=== PATIENT | female | born 1980 | race Hispanic/Latino ===

== ENCOUNTER 2017-10-17 06:26 | Day surgery (SDC) | payer OTHER ==
--- NOTE | 2017-10-16 14:40 | PREOPHP ---
Date of Admission: 10/16/2017 History Of Present Illness: Ms. Avery is a 37-year-old female, 2, para 2-0-0-2 who is status post tubal ligation, who is admitted for an excision of subcutaneous mass suspicious fo r endometriosis and for hysteroscopy, D and C, and NovaSure endometrial ablation for menorrhagia. Sh kimberley is having cyclic menses, but has noticed this abdominal mass for the last [address] exam is s howing increase in size. Because of symptoms and prior 2 sections, it is very suspicious th at this is subcutaneous endometriosis. This mass will be removed by Dr. Ferraro. Hysteroscopy, NovaSu re endometrial ablation will be performed because of extremely heavy period. Past Medical History: Includes 2 prior sections, tubal ligation with her 2nd secti on and carpal tunnel surgery on right wrist. Medications: She is on no medications on a regular basis. Allergies: SHE HAS NO KNOWN ALLERGIES. Social History: Does not smoke. Family History: Includes elevated blood pressure, diabetes on her mother side, breast cancer on her maternal aunt's side. Review of Systems: She reports no recent cough, cold, fever, or chills. No recent nausea, vomiting. She denies any vijay ast lumps. She denies any abdominal pain or discomfort other than associated with the subcutaneous m ass. She denies any vaginal or bladder symptoms. Physical Examination: General: female in no apparent distress. Neck: Supple without adenopathy or thyromegaly. Lungs: Clear. Cardiac: Regular rate and rhythm without murmurs. Breasts: Not examined. Abdomen: Nontender other than the subcutaneous mass basically at her incision line which i s approximately 4 x 6 cm. Pelvic: Normal female external genitalia. There is some vaginal mucosal redness consistent with yea st and she has complaints of some intertrigo. Bimanual, no abnormalities. Extremities: No cyanosis, clubbing, edema. Plan: The patient will undergo a subcutaneous mass removal,, hysteroscopy, dilatation and curettage, NovaSure endometrial ablation. Risks are discussed for the hysteroscopy and D and C, and she has si gned operative permit in my presence. She is told to remain n.p.o. after midnight tonight. MARU/PORTER Voice ID: [id number]
[2017-10-16 16:39] LABS: Absolute Lymphocytes (CBC) 2.4 K/uL (0.7-4.9); Absolute Monocytes 0.5 K/uL (0.1-1.3); Absolute Neutrophil 5.3 K/uL (1.8-8.0); Basophils % 0.9 % (0-1.3); Eosinophils % 0.7 % (0-4.4); Hematocrit 37.6 % (36.0-45.0); MCH 27.1 pg (27.0-35.0); MCV 82.6 fL (80-100); MPV 8.7 fL (7.6-11.3); RBC Red Blood Cell Count 4.56 M/uL (3.86-4.86)
[2017-10-16 16:42] LABS: BUN Blood Urea Nitrogen 11 mg/dL (7-18); Bicarbonate 24 mmol/L (21-32); Glucose Level 85 mg/dL (74-106); Potassium 3.8 mmol/L (3.5-5.1); Sodium Level 139 mmol/L (136-145)
[2017-10-17] MEDS: Ringers Lactate 1,000 ML IV ONE ×2 (06:50→07:05)
[2017-10-17] MEDS ORDERED: SILVER NITRATE 1 APPL TOP ONE (06:52)
[2017-10-17] MEDS ORDERED: BUPIVACAINE 0.5% PF 10 ML VIAL ONE (06:53)
[2017-10-17] MEDS ORDERED: CEFAZOLIN/SWI 1gm 1 GM/10 ML SYR ONE (06:54)
[2017-10-17] MEDS ORDERED: MIDAZOLAM HCL 2 MG/2 ML INJ ONE (07:02)
[2017-10-17] MEDS ORDERED: PROPOFOL 200 MG/20 ML VIAL IV ONE (07:02)
[2017-10-17] MEDS ORDERED: LIDOCAINE 2% MPF 5 ML VIAL ONE (07:02)
[2017-10-17] MEDS ORDERED: FENTANYL CITR 100 MCG/2 ML ONE ×2 (07:02→08:09)
[2017-10-17] MEDS ORDERED: ONDANSETRON HCL 40 MG/20 ML VIAL ONE (07:04)
--- NOTE | 2017-10-17 08:03 | P.BOP ---
Preoperative diagnosis: Menorrhagia Postoperative diagnosis: same, endometrial polyp Primary procedure: hysteroscopy, D&C, Novasure endometrial ablation Estimated blood loss: Less than 10ml Specimen: endometrial currettings Findings: probably polyp Anesthesia: General Complications: None Condition: Good
[2017-10-17] MEDS ORDERED: KETOROLAC 30 MG/ML INJ ONE (08:17)
[2017-10-17] MEDS ORDERED: ONDANSETRON 4 MG/2 ML VIAL ONE (09:10)
[2017-10-17] MEDS ORDERED: PROMETHAZINE 25 MG/ML VIAL ONE (09:15)
[2017-10-17] MEDS ORDERED: MEPERIDINE HCL 50 MG/ML AMP ONE (09:21)
--- NOTE | 2017-10-17 10:34 | OP ---
Surgeon: Gilbert Amaya MD Preoperative Diagnosis: Menorrhagia. Procedure: Hysteroscopy, dilation and curettage, NovaSure endometrial ablation. Postoperative Diagnosis: Menorrhagia, probable endometrial polyp. Description Of Procedure: After satisfactory level of LMA anesthesia was obtained, the patient was p repped and draped in the usual fashion in low leg holders. A bivalve speculum was placed in the vagi na. Cervix was visualized and grasped with single-tooth tenaculum. Hysteroscope was advanced showin g a large endometrial polyp. Hysteroscope was removed. Polyp was grasped with polyp forceps and rem deven with several bites. Hysteroscopy post procedure revealed no additional abnormalities. Brief cu rettage of the endometrium was productive of no additional tissue. NovaSure endometrial ablation wit h a 5.5 cavity length, 4.5 cavity width, 136 greenwood for 80 seconds was performed. NovaSure device was removed. Single-tooth tenaculum was removed. Bleeding at the tenaculum sites was noted, controlled with and stopped by silver nitrate cautery. The patient was then re-prepped and draped for Dr. Nancy juarez's procedure, excision of abdominal mass. Estimated total blood loss was less than 10 mL. MARU/PORTER Voice ID: [id number] Report ID: [id number]
--- NOTE | 2017-10-17 11:01 | OP ---
Date of Procedure: 10/17/2017 Surgeon: Betito Ferraro MD Preoperative Diagnosis: Abdominal wall mass. Postoperative Diagnosis: Abdominal wall mass. Procedure: Excision of abdominal wall mass, deep, 6 x 4 cm with layered closure. Estimated Blood Loss: Minimal. Specimens: Abdominal wall mass. Findings: Likely endometrioma. Anesthesia: General. Complications: None. Disposition: The patient tolerated the procedure in stable condition and taken to Recovery in good g eneral condition. Operative Note: The patient was brought to the OR and placed in supine position. General anesthesia was begun. The patient had procedure done by Dr. Amaya. After he finished, the patient was shirlene kashif in the supine position, prepped and draped in the usual sterile fashion. An approximately 6 cm i ncision was made just above the scar. Subcutaneous tissue was divided all the way down tyrel p into the subcutaneous tissue near the fascia, was hard indurated tissue which was excised and sent to Pathology as specimen, approximately 6 x 4 cm area. The fascia had to be opened to allow complete excision of this mass and then the fascia was closed with #1 Prolene running fashion and wound irrig ated. Bleeding was controlled with cautery. The deep tissues were closed with 2-0 chromic as well a s the superficial tissues, and the john were used to close the skin. Sterile dressing was applied . The patient was awakened and taken to Recovery in good general condition. Discharge Note: The patient will go to Day Surgery and home when stable. Disposition: Home. Condition: Stable. Discharge Instructions: Resume home medications and diet. Activity as tolerated. No heavy lifting. Remove outer dressing in 2 days. Shower. Keep wound clean and dry. Follow up in my office in 1 w [place]. Call for appointment. Follow up with Dr. Amaya in 3 weeks. Tylenol No. 3 one tablet p.o. q.4 p.r.n. pain. /MODL Voice ID: [id number] Report ID: [id number]
== END 2017-10-17 10:40 | disposition home or self-care (01) ==
LOC: OR 06:26
PROVIDERS: ATTEND Specialist
PROC: 0UDB8ZZ Extraction of Endometrium, Via Natural or Artificial Opening Endoscopic (ICD-10-PCS; 2017-10-17)
PROC: 0WBF0ZZ Excision of Abdominal Wall, Open Approach (ICD-10-PCS; principal; 2017-10-17 07:30)
PROC: 0U5B8ZZ Destruction of Endometrium, Via Natural or Artificial Opening Endoscopic (ICD-10-PCS; 2017-10-17 07:30)
DX: N80.8 Other endometriosis (principal); N84.0 Polyp of corpus uteri
CPT/HCPCS: 36415; 80048; 84703; 85025; 88305; J0690; J2175; J2250; J2405; J2550; J3010

== ENCOUNTER 2020-10-01 08:11 | Emergency (ER) | payer OTHER ==
--- NOTE | 2020-10-01 08:54 | ER ---
Nurse's Notes [facility] Name: Gracie Avery Age: 39 yrs Sex: Female : 1980 Arrival Date: 10/01/2020 Time: 08:14 Bed 16 Private MD: Diagnosis: Person with feared health complaint in whom no diagnosis is made Presentation: 10/01 08:20 Chief complaint: Chief complaint: Patient states: Possibly lost a foreign body in her ll1 vagina last night. Reports ETOH use, doesn't remember removing it. 08:20 Coronavirus screen: Client denies travel out of the [place] in the last 14 days. At this ll1 time, the client does not indicate any symptoms associated with coronavirus-19. Ebola Screen: Patient denies travel to an Ebola-affected area in the 21 days before illness onset. Initial Sepsis Screen: Does the patient meet any 2 criteria? No. Patient's initial sepsis screen is negative. Does the patient have a suspected source of infection? No. Patient's initial sepsis screen is negative. Risk Assessment: Do you want to hurt yourself or someone else? Patient reports no desire to harm self or others. Onset of symptoms was September 30, 2020. 08:20 Method Of Arrival: Ambulatory 1 08:20 Acuity: JOHNSON 4 ll1 Historical: - Allergies: 08:20 No Known Allergies; ll1 - PMHx: 08:20 None; ll1 - PSHx: 08:20 uterine ablation; section; ll1 - Immunization history:: Client reports receiving the 2nd dose of the Covid vaccine, Flu vaccine is not up to date. - Social history:: Smoking status: Patient denies any tobacco usage or history of. - Family history:: not pertinent. - Hospitalizations: : No recent hospitalization is reported. Screenin:58 Abuse screen: Denies threats or abuse. Denies injuries from another. Nutritional tr6 screening: No deficits noted. Tuberculosis screening: No symptoms or risk factors identified. Fall Risk None identified. Assessment: 08:57 General: Appears in no apparent distress. comfortable, Behavior is calm, cooperative, tr6 appropriate for age. Pain: Denies pain. Neuro: No deficits noted. Cardiovascular: No deficits noted. Respiratory: No deficits noted. GI: No deficits noted. : No deficits noted. EENT: No deficits noted. Derm: No deficits noted. Musculoskeletal: No deficits noted. Vital Signs: 08:20 BP 157 / 81; Pulse 83; Resp 17; Temp 97.2; Pulse Ox 99% ; Weight 93.89 kg; Height 5 ft. ll1 2 in. (157.48 cm); Pain 0/10; 08:20 Body Mass Index 37.86 (93.89 kg, 157.48 cm) ll1 ED Course: 08:14 Patient arrived in ED. mr 08:17 Seferino De Jesus MD is Attending Physician. rn 08:18 Renetta Costa, KIM is Primary Nurse. tr6 08:25 Arm band placed on Patient placed in an exam room, on a stretcher. ll1 08:40 Triage completed. ll1 08:57 Assist provider with pelvic exam: Set up pelvic tray. Performed by Seferino De Jesus MD. tr6 08:58 Patient has correct armband on for positive identification. Bed in low position. Call tr6 light in reach. Administered Medications: No medications were administered Outcome: 08:53 Discharge ordered by . rn 08:58 Patient left the ED. tr6 Signatures: Carina Ortiz Seferino De Jesus MD MD rn Lewis, Lynsay, RN RN ll1 Renetta Costa, KIM RN tr6 Corrections: (The following items were deleted from the chart) 08:40 08:38 Chief complaint: ll1 ll1
--- NOTE | 2020-10-01 08:54 | EDPHYS ---
Physician Documentation [facility] Name: Gracie Avery Age: 39 yrs Sex: Female : 1980 Arrival Date: 10/01/2020 Time: 08:14 Bed 16 Private MD: ED Physician Seferino De Jesus HPI: 10/01 08:23 This 39 yrs old Female presents to ER via Unassigned with complaints of rn Foreign body In Vagina. 08:23 The patient presents with can't find tampon. Onset: The symptoms/episode began/occurred rn last night. Modifying factors: The symptoms are alleviated by nothing, the symptoms are aggravated by nothing. Associated signs and symptoms: Pertinent negatives: dysuria, fever, vaginal discharge. Severity of symptoms: At their worst the symptoms were mild, in the emergency department the symptoms are unchanged. The patient has not experienced similar symptoms in the past. The patient has not recently seen a physician. Reports placed tampon last night, tried to take out around midnight, had a lot to drink, cannot remember if took out or still in, tried to locate it, can't. No fever or vaginal discharge. . Historical: - Allergies: 08:20 No Known Allergies; ll1 - PMHx: 08:20 None; ll1 - PSHx: 08:20 uterine ablation; section; ll1 - Immunization history:: Client reports receiving the 2nd dose of the Covid vaccine, Flu vaccine is not up to date. - Social history:: Smoking status: Patient denies any tobacco usage or history of. - Family history:: not pertinent. - Hospitalizations: : No recent hospitalization is reported. ROS: 08:23 Positive for suspected foreign body, Negative for vaginal discharge, vaginal itching.rn 08:23 Constitutional: Negative for fever, chills, and weight loss, Abdomen/GI: Negative for abdominal pain, nausea, vomiting, diarrhea, and constipation, Back: Negative for injury and pain. Exam: 08:23 Constitutional: This is a well developed, well nourished patient who is awake, alert, rn and in no acute distress. Abdomen/GI: soft, non-tender 08:46 Female : Normal external genitalia. + small amount of blood and clot in vault, no rn foreign body identified, used swabs and evacuated clot, no tampon visualized, speculum rotated multiple angles, no foreign body appreciated. Clear view of cervix, fornices explored without foreign body or discharge. Vital Signs: 08:20 BP 157 / 81; Pulse 83; Resp 17; Temp 97.2; Pulse Ox 99% ; Weight 93.89 kg; Height 5 ft. ll1 2 in. (157.48 cm); Pain 0/10; 08:20 Body Mass Index 37.86 (93.89 kg, 157.48 cm) ll1 MDM: 08:17 Patient medically screened. rn 08:46 Differential diagnosis: retained tampon, lost tampon. Data reviewed: vital signs, rn nurses notes, and as a result, I will discharge patient. Counseling: I had a detailed discussion with the patient and/or guardian regarding: the historical points, exam findings, and any diagnostic results supporting the discharge/admit diagnosis, the need for outpatient follow up, to return to the emergency department if symptoms worsen or persist or if there are any questions or concerns that arise at home. 08:53 ED course: Will dc home with return precautions, told if any foul discharge nursing support worker discomfort to f/u with TRAFFIC CONTROL OFFICER.. Administered Medications: No medications were administered Disposition Summary: 10/01/20 08:53 Discharge Ordered Location: Home rn Problem: new rn Symptoms: have improved rn Condition: Stable rn Diagnosis - Person with feared health complaint in whom no diagnosis is made rn Followup: rn - With: Private Physician - When: As needed - Reason: Recheck today's complaints, Re-evaluation by your physician Discharge Instructions: - Discharge Summary Sheet rn - Vaginal Foreign Body, [id number] rn Forms: - Medication Reconciliation Form rn - Thank You Letter rn - Antibiotic cerner analyst - Prescription Opioid Use rn Signatures: Seferino De Jesus MD MD rn Lewis, Lynsay, RN RN ll1
[2020-10-01 09:13] VITALS: BP 157/81; TEMP 97.2; O2SAT 99
== END 2020-10-01 08:58 | disposition home or self-care (01) ==
LOC: ER 08:11
DX: Z71.1 Person with feared health complaint in whom no diagnosis is made (principal)
CPT/HCPCS: 99282

== ENCOUNTER 2021-01-11 07:23 | Day surgery (SDC) | payer OTHER ==
[2021-01-08 10:56] LABS: Absolute Lymphocytes (CBC) 2.3 K/uL (0.7-4.9); Basophils % 0.8 % (0-1.3); Hematocrit 36.7 % (36.0-45.0); Lymphocytes % 26.8 % (15.3-44.8); MPV 8.3 fL (7.6-11.3); RBC Red Blood Cell Count 4.38 M/uL (3.86-4.86)
[2021-01-08 11:40] LABS: Urine Appearance CLEAR (Clear); Urine Bilirubin NEGATIVE (Negative); Urine Blood 1+ (Negative); Urine Color YELLOW (Yellow); Urine Glucose NEGATIVE (Negative); Urine Protein NEGATIVE (Negative); Urine Urobilinogen 0.2 mg/dL (0.2-1.0); Urine pH 7.5 (5.0-7.0)
[2021-01-08 11:46] LABS: Urine Microscopic Reflex ORDER UMIC
[2021-01-08 12:06] LABS: Urine Bacteria 20-50 /HPF (<20); Urine RBC <5 /HPF (NONE SEEN)
[2021-01-11 07:45] LABS: Specific Gravity 1.015 (1.005-1.030)
[2021-01-11] MEDS ORDERED: SCOPOLAMINE HYDROBROMIDE PATCH TD ONE (08:08)
[2021-01-11] MEDS ORDERED: Ringers Lactate 1,000 ML IV ONE ×3 (08:08→12:32)
[2021-01-11] MEDS ORDERED: CEFAZOLIN/NS 1gm 1 GM/50 ML BAG ONE (08:09)
[2021-01-11] MEDS ORDERED: CEFAZOLIN/SWI 2gm 2 GM/20 ML SYR ONE (08:09)
[2021-01-11] MEDS ORDERED: propofoL 200 MG/20 ML VIAL IV ONE (08:31)
[2021-01-11] MEDS ORDERED: ROCURONIUM 50 MG/5 ML VIAL IV ONE ×3 (08:32→11:16)
[2021-01-11] MEDS ORDERED: GLYCOPYRROLATE 0.2 MG/ML SYR ONE (08:33)
[2021-01-11] MEDS ORDERED: LIDOCAINE 2% MPF 5 ML VIAL ONE (08:33)
[2021-01-11] MEDS ORDERED: FENTANYL CITR 250 MCG/5 ML ONE (08:33)
[2021-01-11] MEDS ORDERED: MIDAZOLAM HCL 2 MG/2 ML INJ ONE (08:33)
[2021-01-11] MEDS ORDERED: ONDANSETRON 4 MG/2 ML VIAL ONE (08:35)
[2021-01-11] MEDS ORDERED: CELECOXIB 100 MG CAPSULE ONE ×2 (08:42→08:45)
[2021-01-11] MEDS ORDERED: ACETAMINOPHEN 500 MG TAB ONE (08:42)
[2021-01-11] MEDS ORDERED: dexAMETHasone 10 MG/ML VIAL ONE (09:13)
[2021-01-11] MEDS: BUPIVACAINE 0.25% PF 30 ML VIAL ONE ×2 (09:24→09:30)
[2021-01-11] MEDS ORDERED: FENTANYL CITR 100 MCG/2 ML ONE ×3 (10:13→12:01)
[2021-01-11] MEDS: Ringers Lactate 1,000 ML IV ONE ×2 (10:27→10:45)
[2021-01-11] MEDS ORDERED: HEPARIN 500 UNIT/5 ML SYR IV ONE (10:38)
[2021-01-11] MEDS ORDERED: KETOROLAC 30 MG/ML INJ ONE (11:35)
[2021-01-11] MEDS ORDERED: METHYLENE BLUE 0.5% 10 ML AMP ONE (12:24)
[2021-01-11] MEDS ORDERED: Mastisol Adhesive Liq ONE (12:28)
[2021-01-11] MEDS ORDERED: PROMETHAZINE INJ 25 MG/ML AMP IV PRN (12:33)
[2021-01-11] MEDS ORDERED: IBUPROFEN 200 MG TAB PO PRN (12:33)
[2021-01-11] MEDS ORDERED: HYDROCODONE/APAP 5/325 MG TAB PO PRN (12:33)
[2021-01-11] MEDS ORDERED: MEPERIDINE HCL 25 MG/ML SYR IM PRN (12:33)
--- NOTE | 2021-01-11 12:42 | P.BOP ---
Preoperative diagnosis: Menorrhagia, Pelvic pain Postoperative diagnosis: AUB-A/E, Endometriosis Primary procedure: TLH BS, Extensive Endo excision, thermocoagulation, BRIAN bladder Secondary procedure: cystoscopy Training Facilitator: Amber Paul Estimated blood loss: min Specimen: uterus tubes endo of ant CDS excised Findings: endometriosis ant CDS, post CDS and bilat USL Anesthesia: General Complications: None Transferred to: Recovery Room Condition: Good
[2021-01-11] MEDS ORDERED: HYDROCODONE/APAP 5/325 MG TAB ONE (14:37)
[2021-01-11 17:02] VITALS: BP 146/78; TEMP 98.9; O2SAT 100
[2021-01-12] MEDS ORDERED: HOME MED 1 EA UNK (Pnv No.95/Ferrous Fum/Folic Ac [Prenatal Multivitamin Tablet] Tablet) PO SCH (09:00)
--- NOTE | 2021-01-15 05:14 | OP ---
Date of Procedure: 01/11/2021 Surgeon: Kaylan Finch MD Wire Spinner: Amber Apple. Preoperative Diagnosis: Menorrhagia, pelvic pain. Postoperative Diagnosis: AUB-A/E, menorrhagia, pelvic pain, endometriosis, and bladder adhesions. C esarean scar to the uterus and bladder. Procedures Performed: Total laparoscopic hysterectomy, extensive endometriosis excision, thermocoagu lation of endometriosis as well and lysis of bladder adhesions from her prior sections from scar and cystoscopy. Estimated Blood Loss: Minimal. Specimens: Uterus, tubes, endometriosis of the anterior cul-de-sac that was excised. Findings: Endometriosis of the anterior cul-de-sac, posterior cul-de-sac, bilateral uterosacral liga ments, adhesions of the bladder to the anterior abdominal wall as well as the uterus to the anterior abdominal wall significant from her prior scar. Left ureter had not shown a prompt jet of urine. So, 0.035 mm Glidewire was inserted and removed and then there is a strong jet of urine from the ureter. Cystoscopy was negative. Anesthesia: General endotracheal. Complications: No complications. Drains: No drains. Condition: The patient's condition is stable. On the posterior cul-de-sac, the endometriosis implants were straight across from [address] on the anterior wall of the rectum, however, very superficial peritoneal implants going all th e way to the opposite side uterosacral. There was partial cul-de-sac obliteration, so the series of the endometriosis on the posterior wall were thermocoagulated using bipolar Josie tip. Anterior cu l-de-sac, another endometriosis was excised and included with the specimen. After informed consent was verified, the patient was taken back to the OR, placed in supine fashion o n the operating table. General anesthesia was given. After 2 g of Ancef was given to this patient, SCDs were started. Abdomen, vulva, vagina, and perineum were prepped and draped in a sterile fashion after putting the patient in lithotomy position. Pelvic exam was performed, no new findings. Castle was placed to drain the bladder and attached for retrograde filling and then a large VCare was introduced into the uterus and fixed in place. This difficulty initially was popped in without any p roblems after this area was draped. A 1 cm supraumbilical incision was made with a scalpel using the open laparoscopy technique. Fascia was incised and tagged with 0 Vicryl sutures. Peritoneum was entered sharply. S-retractors were shirlene kashif. Gurinder was introduced. After adequate insufflation, site of entry was checked and was unremark able. The adhesions of the bladder went all the way pen[facility] down from the umbilicus to the level of the bladder suprapubic area completely, that was the reason why originally, also given the body habit us of the patient, incision was made in the supraumbilical area. After placing 5 left lower quadrant and right lower quadrant ports as well as left upper quadrant por t at the midclavicular line, dissection was started. The scar had to be first fr om the uterus. The plane between the bladder, the retroperitoneum, and the uterus was identified and sharp dissection as well as the use of LigaSure bipolar cautery, this scar was taken down all the wa y to the right lateral broad ligament and the left lateral broad ligament. The left side was much mo re scarred. So, the peritoneum was opened at the level of the caudal part of the round ligament, and once this was entered, the dissection was carried in the plane to separate the peritoneum and the bl adder from the anterior wall of the uterus. Once this was dissected down all the way down to the lev el of the anterior vaginal wall, the bladder was visualized. That took us about 20 minutes of the case. Then went on to take down the left tube from the distal end to the interruption from the tubal handed out for permanent pathology. Then, the utero-ovarian ligament was taken down. The broad ligament w as opened up and peritoneum was dissected to expose the area of the ureter and staying about this shirlene ne. The posterior peritoneum was taken down to get to the round ligament and the round ligament was taken down as I opened up the lateral broad ligament to dissect away the uterus from the anterior abd ominal wall adhesions. The anterior broad ligament was wide open. Dissection was carried all the wa y to the level of the uterine vessels. Then, posterior peritoneum was carefully dissected down to th e level of the uterosacral after noting the endometriosis as described in the findings. This was to be excised or thermocoagulated after the hysterectomy was performed. Excising this would detach the supports of the uterus from the uterosacral completely for this young patient and so I did not think that this is necessary at this time as the deep dyspareunia was not one of her chief complaints and d yschezia was also not noted on the preoperative evaluation. Then, the vessels were dissected away and opened up between the vaginal cuff and the artery and vein. Once the space was created, the vessels laterally were dissected to expose the ureteric crossing un cliff. Then, once it was a good exposure, the vessels were cauterized with the help of the bipolar. T hen, anterior broad ligament was dissected and the anterior vaginal wall was dissected further to ope n up the retroperitoneal space and fat was kept with the bladder and dissected inferiorly to expose a t least 1.5 cm of the anterior vaginal wall. Going onto the opposite side, similar dissection was performed taking the distal tube, then utero and ovarian ligament were taken down including the proximal part of the tube with the uterus. Then, bro ad ligament was opened up to expose the round ligament and posteriorly the peritoneum taken down afte r identifying the route of the ureter, that was without any anatomical distortion towards the uterosa cral ligament. Then anteriorly, the round ligament was taken down with the LigaSure and the rest of the anterior peritoneum was already dissected due to the lysis of adhesions anteriorly. The vessels were dissected and , isolated. Then, anterior vaginal wall was cleared up on the right side as well bipolar cautery as well as the LigaSure and then cut. Then cardinal ligaments we re taken down with the help of the bipolar Josie tip on the right side, then on the left side and t ook down the vessels as well as the cardinal ligaments. After that, colpotomy was performed with a m onopolar hook blade in circumferential fashion and the uterus was detached. This was pulled out through the vaginal canal and handed over for permanent pathology and the vaginal occluder was placed. Thorough irrigation suction was performed here and the vaginal cuff was closed with the help of 2-0 V icryl sutures at both angles by placing the knots outside the angles, then 2-0 V-Loc was used to clos e in 2 layers starting from the right side on the vaginal epithelial layer and subepithelial tissue, then closing the connective tissue of the fascia of the anterior and posterior vaginal wall together without attaching the cuff from the uterosacral ligaments. Two back sutures were placed to prevent unwinding of the V-Loc. Thorough irrigation suction was performed. There was excellent hemostasis. No evidence of electrica l, mechanical, or thermal injury to the ureters. At this point, the ureter was identified. Relaxing incision was made to separate away the ureter from the uterosacral, then the uterosacral endometrios is was picked up with the help of tip of a Josie bipolar and cauterized, then going across the ante rior peritoneal wall of the rectum all the way to the right uterosacral. Once all this was cauterize d, no other endometriosis was seen, this was satisfactory. The ovaries appeared to be well vasculari zed and in place without any excessive laxity. All the trocars were removed under direct vision, injected with Marcaine at entry and closure. Fasci a at the umbilicus closed after desufflating the belly and removing the Gurinder. The fascia at the um bilicus was closed with the help of a 0 Vicryl tie and tacked to the edges tied together and suprapub ic fascia with 0 Vicryl suture. All skin incisions closed with 3-0 chromic. The Castle was removed. The vaginal occluder was removed. Cystoscopy was performed with a 17-Sinhala sheath 30-degree lens with normal saline. Excellent stream of urine from the right ureter, from the left it was very sluggish, so placed a 0.035 Glidewire to advance to 20 cm without any friction, pull ed back out and then there was a strong jet of urine from the side. No evidence of any trauma to the bladder or foreign body. Bladder was drained. Vaginal canal was cleaned up. Instrument, needle, a nd sponge counts were correct at the end of the case. The patient tolerated the procedure well. She was recovered from anesthesia and ta tierra to PACU in stable condition. DELILAH/PORTER Voice ID: [id number] Report ID: [id number]
== END 2021-01-11 17:24 | disposition home or self-care (01) ==
LOC: OR 07:23
PROVIDERS: ATTEND Obstetrics & Gynecology
PROC: 0TNB4ZZ Release Bladder, Percutaneous Endoscopic Approach (ICD-10-PCS; 2021-01-11)
PROC: 0UBF4ZZ Excision of Cul-de-sac, Percutaneous Endoscopic Approach (ICD-10-PCS; 2021-01-11)
PROC: 0UB44ZZ Excision of Uterine Supporting Structure, Percutaneous Endoscopic Approach (ICD-10-PCS; 2021-01-11)
PROC: 0DNW4ZZ Release Peritoneum, Percutaneous Endoscopic Approach (ICD-10-PCS; 2021-01-11)
PROC: 0UT94ZZ Resection of Uterus, Percutaneous Endoscopic Approach (ICD-10-PCS; principal; 2021-01-11 09:30)
DX: N72 Inflammatory disease of cervix uteri (principal); N88.8 Other specified noninflammatory disorders of cervix uteri; D25.9 Leiomyoma of uterus, unspecified; N94.89 Other specified conditions associated with female genital organs and menstrual cycle; D27.1 Benign neoplasm of left ovary; R10.2 Pelvic and perineal pain; R87.612 Low grade squamous intraepithelial lesion on cytologic smear of cervix (LGSIL); R82.71 Bacteriuria; N32.89 Other specified disorders of bladder; Z20.822 Contact with and (suspected) exposure to COVID-19
CPT/HCPCS: 87088; 85025; 87086; 36415; 86900; 86850; 81025; 86901; 88307 ×2; 58572; 53899; 58662; 49329; U0002; J2704; J2250; J3010 ×4; J1100; J0690 ×2; J7120 ×4; J2405; 81003; 81015; 88305; J1642

== ENCOUNTER 2022-02-09 01:44 | Observation (INO) | payer OTHER ==
--- OUTSIDE RECORDS SUMMARY | 2022-02-09 01:47 | XMS REPORT | Continuity of Care Document ---
:1980 Author Organization [facility] t Address [address] [place] [address] Dr. Iwrin [address] [place] [id number] Care Team Providers Name Role Phone Jarrett David Vanessa Attending Clinician Unavailable Raju_P Attending Clinician Unavailable Raju_P Admitting Clinician Unavailable Problems This patient has no known problems. Allergies, Adverse Reactions, Alerts This patient has no known allergies or adverse reactions. Medications This patient has no known medications. Procedures This patient has no known procedures. Encounters Start End Encounter Admission Attending Care Care Encounter Source Date/Time Date/Time Type Type Clinicians Facility Department ID 2022-01-31 Outpatient Farias, [facility] [id number] Common 14:08:04 [facility] [facility] [id number] Common 14:49:02 [facility]-[address] [facility] [id number] Common 09:56:05 [facility] 2019-06-09 2019-06-09 Outpatient Raju_P [facility] [id number] [place] 04:36:00 04:36:00 [id number] Results This patient has no known results.
[2022-02-09 02:25] LABS: Absolute Lymphocytes (CBC) 1.8 K/uL (0.7-4.9); Hematocrit 36.4 % (36.0-45.0); Lymphocytes % 13.9 % (15.3-44.8); MCV 85.2 fL (80-100); MPV 7.7 fL (7.6-11.3); RBC Red Blood Cell Count 4.28 M/uL (3.86-4.86)
[2022-02-09] MEDS ORDERED: ONDANSETRON 4 MG/2 ML VIAL ONE ×4 (02:27→16:37)
[2022-02-09] MEDS ORDERED: MORPHINE 4 MG/ML SYR ONE ×3 (02:27→08:23)
[2022-02-09] MEDS ORDERED: FAMOTIDINE 20 MG/2 ML VIAL IV ONE (02:27)
[2022-02-09] MEDS ORDERED: NA CHLORIDE 0.9% 1,000 ML ONE (02:27)
[2022-02-09 02:43] LABS: Albumin 3.9 g/dL (3.4-5.0); Bilirubin Total 0.7 mg/dL (0.2-1.0); Potassium 3.2 mmol/L (3.5-5.1)
--- NOTE | 2022-02-09 05:45 | ER ---
[facility] Name: Gracie Avery Age: 41 yrs Sex: Female : 1980 Arrival Date: 02/09/2022 Time: 01:48 Bed 3 Private MD: Diagnosis: Other cholelithiasis without obstruction;Intractable pain Presentation: 02/09 02:02 Chief complaint: Patient states: C/o N/V, abdominal and back pain 8/10 since 8 PM last ll3 night, states "This seems similar to my last gallbladder attack a few years ago". Coronavirus screen: Vaccine status: Patient reports receiving the 2nd dose of the covid vaccine. nausea, vomiting. Ebola Screen: No symptoms or risks identified at this time. Initial Sepsis Screen: Does the patient meet any 2 criteria? No. Patient's initial sepsis screen is negative. Does the patient have a suspected source of infection? No. Patient's initial sepsis screen is negative. Risk Assessment: Do you want to hurt yourself or someone else? Patient reports no desire to harm self or others. Onset of symptoms was February 08, 2022 at 20:00. 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 - Social history:: Smoking status: Patient denies any tobacco usage or history of. - Family history:: not pertinent. - Hospitalizations: : No recent hospitalization is reported. Screenin:02 Abuse screen: Denies threats or abuse. Denies injuries from another. Nutritional kd3 screening: No deficits noted. Tuberculosis screening: No symptoms or risk factors identified. Fall Risk IV access (20 points). Assessment: 02:15 General: Appears in no apparent distress. comfortable, Behavior is calm, cooperative, jb4 appropriate for age. Pain: Complains of pain in epigastric area Pain does not radiate. Pain currently is 8 out of 10 on a pain scale. Quality of pain is described as burning. Neuro: Level of Consciousness is awake, alert, obeys commands, Oriented to person, place, time, situation. Cardiovascular: Patient's skin is warm and dry. Respiratory: Airway is patent Respiratory effort is even, unlabored, Respiratory pattern is regular, symmetrical. GI: Abdomen is flat, non-distended, Pt is actively vomiting bile. : No signs and/or symptoms were reported regarding the genitourinary system. EENT: No signs and/or symptoms were reported regarding the EENT system. Derm: Skin is intact, Skin is pink, warm \\T\\ dry. Musculoskeletal: Circulation, motion, and sensation intact. Range of motion: intact in all extremities. 03:14 Reassessment: Patient appears in no apparent distress at this time. Patient and/or jb4 family updated on plan of care and expected duration. Pain level reassessed. Patient is alert, oriented x 3, equal unlabored respirations, skin warm/dry/pink. Patient states symptoms have improved. 04:15 Reassessment: Patient appears in no apparent distress at this time. Patient and/or jb4 family updated on plan of care and expected duration. Pain level reassessed. Patient is alert, oriented x 3, equal unlabored respirations, skin warm/dry/pink. 05:17 Reassessment: Patient appears in no apparent distress at this time. Patient and/or jb4 family updated on plan of care and expected duration. Pain level reassessed. Patient is alert, oriented x 3, equal unlabored respirations, skin warm/dry/pink. 07:00 Reassessment: No changes from previously documented assessment. report received from [facility] mini shifter RN. 07:14 Reassessment: ultrasound at bedside. [facility] 07:15 GI: Bowel sounds present X 4 quads. Abd is soft Abdomen is tender to palpation in right ll1 upper quadrant. Vital Signs: 02:02 BP 148 / 78; Pulse 76; Resp 17; Temp 98.1(O); Pulse Ox 100% on R/A; Weight 87.54 kg ll3 (R); Height 5 ft. 1 in. (154.94 cm) (R); Pain 8/10; 03:30 BP 130 / 62; Pulse 89; Resp 16; Pulse Ox 100% on R/A; jb4 04:00 BP 134 / 66; Pulse 90; Resp 19; Pulse Ox 100% on R/A; kd3 05:00 BP 124 / 63; Pulse 76; Resp 16; Pulse Ox 100% on R/A; jb4 02:02 Body Mass Index 36.47 (87.54 kg, 154.94 cm) ll3 ED Course: 01:48 Patient arrived in ED. bp1 01:49 Seferino De Jesus MD is Attending Physician. rn 02:05 Triage completed. ll3 02:05 Arm band placed on Patient placed in an exam room, on a stretcher, on pulse oximetry. ll3 02:12 Santiago Garcia RN is Primary Nurse. jb4 02:21 CBC with Diff Sent. jb4 02:21 CMP Sent. jb4 02:21 Lipase Sent. jb4 03:08 CT Abd/Pelvis - IV Contrast Only In Process Unspecified. EDMS 05:44 Santiago Jones MD is Hospitalizing Provider. rn 07:13 Patient has correct armband on for positive identification. Bed in low position. Call ll1 light in reach. Client placed on continuous cardiac and pulse oximetry monitoring. NIBP monitoring applied. 07:13 No provider procedures requiring assistance completed. Patient admitted, IV remains in ll1 place. Administered Medications: 02:42 Drug: NS 0.9% 1000 ml Route: IV; Rate: 1 bolus; Site: right antecubital; jb4 13:25 Follow up: Response: No adverse reaction; IV Status: Completed infusion; IV Intake: ll1 1000ml 02:42 Drug: Pepcid (famotidine) 20 mg Route: IVP; Site: right antecubital; jb4 13:25 Follow up: Response: No adverse reaction ll1 02:42 Drug: Zofran (Ondansetron) 4 mg Route: IVP; Site: right antecubital; jb4 13:25 Follow up: Response: No adverse reaction ll1 02:42 Drug: morphine 4 mg Route: IVP; Infused Over: 4 mins; Site: right antecubital; jb4 13:24 Follow up: Response: No adverse reaction ll1 04:00 Drug: morphine 4 mg Route: IVP; Infused Over: 4 mins; Site: right antecubital; kd3 13:25 Follow up: Response: No adverse reaction ll1 06:18 Drug: Rocephin (cefTRIAXone) 1 grams Route: IV; Rate: calculated rate; Site: right jb4 antecubital; 13:25 Follow up: Response: No adverse reaction; IV Status: Completed infusion; IV Intake: [id number] 06:18 Drug: Flagyl (metroNIDAZOLE) 500 mg Volume: 100 ml; Route: IVPB; Rate: 200 ml/hr; jb4 Infused Over: 30 mins; Site: right antecubital; 13:26 Follow up: Response: No adverse reaction; IV Status: Completed infusion; IV Intake: ll1 100ml Medication: 07:13 VIS not applicable for this client. ll1 Intake: 13:25 IV: 1000ml; Total: 1000ml. ll1 13:25 IV: 50ml; Total: 1050ml. ll1 13:26 IV: 100ml; Total: 1150ml. 1 Outcome: 05:44 Decision to Hospitalize by Provider. rn 07:14 Admitted to Med/surg 1 07:14 Condition: stable 07:14 Instructed on the need for admit. 13:46 Patient left the ED. 1 Signatures: Dispatcher [employer] EDMS Seferino De Jesus MD MD rn Bryson, James, RN RN jb4 Lewis, Lynsay, RN RN ll1 Anabel Haney Lynsea, RN RN ll3 Ame Rolle RN RN kd3 Corrections: (The following items were deleted from the chart) 04:03 04:02 GI: kd3 kd3
--- NOTE | 2022-02-09 05:45 | EDPHYS ---
Physician Documentation [facility] Name: Gracie Avery Age: 41 yrs Sex: Female : 1980 Arrival Date: 02/09/2022 Time: 01:48 Bed 3 Private MD: ED Physician Seferino De Jesus HPI: 02/09 02:02 This 41 yrs old Female presents to ER via Unassigned with complaints of rn Abdominal Pain, Back Pain, Vomiting. 02:02 The patient presents with abdominal pain in the epigastric area, in the right upper rn quadrant. Onset: The symptoms/episode began/occurred yesterday. The symptoms radiate to back. Associated signs and symptoms: Pertinent positives: nausea and vomiting, Pertinent negatives: blood in stools, fever, shortness of breath. The symptoms are described as achy. Modifying factors: The symptoms are alleviated by nothing, the symptoms are aggravated by touching the area. Severity of pain: At its worst the pain was moderate in the emergency department the pain is unchanged. The patient has experienced similar episodes in the past. The patient has not recently seen a physician. Pt reports upper abd pain, assoc with nausea/vomiting, no fever/diarrhea. No chills. No chest pain. No sob. + hx of gallstones and feels identical to patient. . 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 - Social history:: Smoking status: Patient denies any tobacco usage or history of. - Family history:: not pertinent. - Hospitalizations: : No recent hospitalization is reported. ROS: 02:02 Constitutional: Negative for fever, chills, and weight loss, Eyes: Negative for injury, rn pain, redness, and discharge, Cardiovascular: Negative for chest pain, palpitations, and edema, Respiratory: Negative for shortness of breath, cough, wheezing, and pleuritic chest pain, Abdomen/GI: + upper abd pain and nausea/vomiting Back: Negative for injury MS/Extremity: Negative for injury and deformity, Skin: Negative for injury, rash, and discoloration, Neuro: Negative for headache, weakness, numbness, tingling, and seizure. Exam: 02:02 Constitutional: This is a well developed, well nourished patient who is awake, alert, rn appears uncomfortable, holding emesis bag. Head/Face: Normocephalic, atraumatic. Cardiovascular: Regular rate and rhythm. No pulse deficits. Respiratory: No increased work of breathing, no retractions or nasal flaring. Abdomen/GI: soft, + RUQ tenderness, no rebound, neg ramos Skin: Warm, dry MS/ Extremity: Pulses equal, no cyanosis Neuro: Awake and alert, GCS 15 Vital Signs: 02:02 BP 148 / 78; Pulse 76; Resp 17; Temp 98.1(O); Pulse Ox 100% on R/A; Weight 87.54 kg ll3 (R); Height 5 ft. 1 in. (154.94 cm) (R); Pain 8/10; 03:30 BP 130 / 62; Pulse 89; Resp 16; Pulse Ox 100% on R/A; jb4 04:00 BP 134 / 66; Pulse 90; Resp 19; Pulse Ox 100% on R/A; kd3 05:00 BP 124 / 63; Pulse 76; Resp 16; Pulse Ox 100% on R/A; jb4 02:02 Body Mass Index 36.47 (87.54 kg, 154.94 cm) ll3 MDM: 01:49 Patient medically screened. rn 02:12 ED course: photo optics technician refuses to come out to perform study, claims not included in rn "radio division captain policy". Will have to perform CT abdomen.. 05:41 Differential diagnosis: cholecystitis, Cholelithiasis, gastritis, gastroesophageal rn reflux disease, non-specific abd pain, pancreatitis. Data reviewed: vital signs, nurses notes, lab test result(s), radiologic studies, CT scan, and as a result, I will admit patient. Counseling: I had a detailed discussion with the patient and/or guardian regarding: the historical points, exam findings, and any diagnostic results supporting the discharge/admit diagnosis, lab results, radiology results, the need for further work-up and treatment in the hospital. Response to treatment: the patient's symptoms have mildly improved after treatment, and as a result, I will admit patient. Admission orders: after a detailed discussion of the patient's condition and case, the admit orders are written by me. ED course: Pt initially improved, pain returned, given morphine again, and pain returned once again. CT does not show acute cholecystitis, but does show stones in the neck, elevated WBC, and pain not well controlled. Will admit to Dr. bolaños for further care. . 02/09 01:59 Order name: CBC with Diff; Complete Time: 02:43 rn 02/09 01:59 Order name: CMP; Complete Time: 02:43 rn 02/09 01:59 Order name: Lipase; Complete Time: 02:43 rn 02/09 02:01 Order name: US Abdomen Limited rn 02/09 05:41 Order name: SARS RAPID; Complete Time: 06:33 rn 02/09 13:38 Order name: Urine Dipstick-Ancillary EDMS 02/09 02:13 Order name: CT Abd/Pelvis - IV Contrast Only rn 02/09 07:47 Order name: US; Complete Time: 12:54 EDMS 02/09 01:59 Order name: IV Saline Lock; Complete Time: 02:21 rn 02/09 01:59 Order name: Labs collected and sent; Complete Time: 02:21 rn Administered Medications: 02:42 Drug: NS 0.9% 1000 ml Route: IV; Rate: 1 bolus; Site: right antecubital; jb4 13:25 Follow up: Response: No adverse reaction; IV Status: Completed infusion; IV Intake: ll1 1000ml 02:42 Drug: Pepcid (famotidine) 20 mg Route: IVP; Site: right antecubital; jb4 13:25 Follow up: Response: No adverse reaction ll1 02:42 Drug: Zofran (Ondansetron) 4 mg Route: IVP; Site: right antecubital; jb4 13:25 Follow up: Response: No adverse reaction ll1 02:42 Drug: morphine 4 mg Route: IVP; Infused Over: 4 mins; Site: right antecubital; jb4 13:24 Follow up: Response: No adverse reaction ll1 04:00 Drug: morphine 4 mg Route: IVP; Infused Over: 4 mins; Site: right antecubital; kd3 13:25 Follow up: Response: No adverse reaction ll1 06:18 Drug: Rocephin (cefTRIAXone) 1 grams Route: IV; Rate: calculated rate; Site: right jb4 antecubital; 13:25 Follow up: Response: No adverse reaction; IV Status: Completed infusion; IV Intake: [id number] 06:18 Drug: Flagyl (metroNIDAZOLE) 500 mg Volume: 100 ml; Route: IVPB; Rate: 200 ml/hr; jb4 Infused Over: 30 mins; Site: right antecubital; 13:26 Follow up: Response: No adverse reaction; IV Status: Completed infusion; IV Intake: ll1 100ml Disposition Summary: 02/09/22 05:44 Hospitalization Ordered Hospitalization Status: Observation rn Provider: Santiago Bolaños rn Condition: Stable rn Problem: new rn Symptoms: are unchanged rn Bed/Room Type: Standard rn Location: Telemetry/MedSurg (observation)(02/09/22 12:33) kj1 Room Assignment: [facility](02/09/22 12:33) kj1 Diagnosis - Other cholelithiasis without obstruction rn - Intractable pain rn Forms: - Medication Reconciliation Form rn - SBAR form rn Signatures: Dispatcher [employer] EDSeferino Sood MD MD rn Garcia, Cindy RN RN Santiago Singh RN RN [email or web address] Madelyn Colunga kj1 Chalino Burgess DO DO ms3 Afsaneh Anguiano, RN RN ll3 Ame Rolle, RN RN kd3 Venkatesh Dsouza RN ll1 Corrections: (The following items were deleted from the chart) 06:28 05:44 Telemetry/MedSurg (observation) rn cg 06:28 05:44 rn cg 12:33 06:28 [facility] ER HOLD cg kj1 12:33 06:28 ERHOLD- cg kj1
[2022-02-09] MEDS ORDERED: CEFTRIAXONE 1000 MG/VIAL ONE (05:49)
[2022-02-09] MEDS ORDERED: METRONIDAZOLE 500mg IVPB 500 MG/100 ML BAG IV ONE (05:49)
[2022-02-09 06:20] LABS: SARS-CoV-2 Antigen Rapid Res Negative (Negative)
[2022-02-09] MEDS ORDERED: MORPHINE 4 MG/ML SYR IV PRN (07:11)
[2022-02-09] MEDS ORDERED: ONDANSETRON 4 MG/2 ML VIAL IV PRN ×2 (07:11→15:41)
--- NOTE | 2022-02-09 07:46 | RAD REPORT ---
EXAM DESCRIPTION: US - Abdomen Exam Limited - 02/09/2022 7:29 am CLINICAL HISTORY: ABD PAIN COMPARISON: Abdomen Pelvis W Contrast dated 02/09/2022 FINDINGS: The gallbladder demonstrates a large gallstone at the gallbladder neck. No pericholecystic fluid or gallbladder wall thickening. The common bile duct is normal measuring 4 mm. The gallbladder is distended. Negative sonographic Soares's sign. The liver demonstrates no findings of intrahepatic biliary dilatation. IMPRESSION: Cholelithiasis with stone impacted at the gallbladder neck and gallbladder distention. N o specific sonographic findings to confirm the presence of acute cholecystitis, however. The findings remain equivocal. Correlate with LFTs.
[2022-02-09 08:35] VITALS: BMI 36.1
[2022-02-09] MEDS ORDERED: CEFOXITIN SODIUM 1 GM/VIAL ONE ×3 (12:49→23:18)
[2022-02-09] MEDS ORDERED: NA CHLORIDE 0.9% 100 ML IV ONE (12:49)
[2022-02-09] MEDS ORDERED: D5 0.45 NS 1,000 ML IV ONE (12:49)
[2022-02-09] MEDS: D5 0.45 NS 1,000 ML IV SCH ×2 (12:57→23:11)
[2022-02-09] MEDS: CEFOXITIN 1 GM in NA CHLORIDE 0.9% 50 ML IVPB SCH ×3 (12:57→23:24)
[2022-02-09 13:38] LABS: Urine Blood 1+ (Negative); Urine Glucose Negative (Negative); Urine Protein Negative (Negative); Urine Specific Gravity <=1.005 (1.005-1.030); Urine pH 5.5 (5.0-7.0)
[2022-02-09] MEDS ORDERED: Ringers Lactate 1,000 ML IV ONE ×2 (13:53→15:35)
[2022-02-09] MEDS ORDERED: SUCCINYLCHOLINE 20 MG/ML (10 ML) IV ONE (14:06)
[2022-02-09] MEDS ORDERED: FENTANYL CITR 100 MCG/2 ML ONE ×2 (14:09→15:09)
[2022-02-09] MEDS ORDERED: propofoL 200 MG/20 ML VIAL IV ONE (14:09)
[2022-02-09] MEDS ORDERED: MIDAZOLAM HCL 2 MG/2 ML INJ ONE (14:09)
[2022-02-09] MEDS ORDERED: ROCURONIUM 50 MG/5 ML VIAL IV ONE ×2 (14:09→15:08)
--- NOTE | 2022-02-09 14:28 | P.HP ---
Date of Service: 02/09/22 PC: This 41-year-old female presented to the emergency room with severe right upper quadrant abdominal pain for diagnosis and treatment. HPC: Patient has had previous episodes of this pain. On work-up at that time was found to have cholelithiasis. She has been having attacks over the last few months. This most recent 1 however started yesterday, was unrelenting, she had nausea and vomiting with it. She came to the ER. PSHx: Negative PMHx: Negative Social Hx: Allergic to mangoes Sys R: No cough, wheeze, shortness of breath. No chest pain or palpitations. Denies any urinary complaints O/E: Awake alert vital signs are stable HEENT: Not jaundiced Chest: Chest movement equal bilaterally Abd: Tender across the upper abdomen with pain referred to her back Abiquiu: Intact Data: Elevated white cell count, ultrasound shows stone stuck in the neck of the gallbladder Impression: Cholecystitis with cholelithiasis, biliary colic Plan: I will taken the operating room for laparoscopic possible open cholecystectomy with a cholangiogram. The risks of this procedure have been discussed. The possibility of bleeding, infection, injury to bile ducts blood vessels and intestines was described. The possible need for an open and/or further surgeries and procedures was discussed. She understands and wants to proceed.
[2022-02-09] MEDS ORDERED: KETOROLAC 30 MG/ML INJ ONE (14:44)
[2022-02-09] MEDS ORDERED: dexAMETHasone 10 MG/ML VIAL ONE (14:44)
[2022-02-09] MEDS ORDERED: GLYCOPYRROLATE 0.2 MG/ML SYR ONE (15:15)
[2022-02-09] MEDS ORDERED: NEOSTIGMINE 1 MG/ML -5 ML ONE (15:15)
--- NOTE | 2022-02-09 15:24 | P.OP ---
Preoperative diagnosis: Acute on chronic cholecystitis with cholelithiasis, biliary Postoperative diagnosis: The same Primary procedure: Laparoscopic cholecystectomy Secondary procedure: Cholangiogram Other procedure(s): Tap block Anesthesia: General anesthesia Estimated blood loss: Less than 15 cc Specimen: Gallbladder and contents Operative Technique: The patient brought the operating room and placed supine on the table. After the induction of adequate general endotracheal anesthesia, the area of the abdomen was prepped with a DuraPrep solution, she was draped in usual aseptic manner. A subumbilical incision was made. This was brought down through the skin and subcutaneous tissue. The Visiport was used to enter the peritoneal cavity and created pneumoperitoneum and approximately 12 mmHg. Under direct vision a 5 mm trocar was placed in the upper midline, and 2 other fives on the right lateral side of the abdomen. The patient was now placed in reverse Trendelenburg. The table was turned to the left. We could visualize the right upper quadrant. It became immediately apparent that the gallbladder was markedly inflamed with the omentum adherent to the serosal surface. These adhesions were taken off using blunt and sharp dissection. Towards the fundus they were quite light but more dense around Huggins's pouch. Having cleared the Huggins's pouch area we now isolated the cystic duct and artery. A clip was placed on the cystic artery. A clip was also placed between the gallbladder and the cystic duct. An opening was made into the cystic duct through which we obtained a normal intraoperative cholangiogram no filling defects were noted. The catheter was now removed. Clips were placed on the distal portion of the cystic duct. The cystic duct was fully transected. The cystic artery was now divided with electrocautery. The gallbladder was then dissected free from the liver bed, placed into an Endo Catch, and brought out through the umbilical trocar site. At this point we turned our attention back to the liver bed. There was 1 area on the right lobe and the base of the gallbladder fossa that had a small amount of bleeding and there appeared to be a small ductal structure in the area. This was clipped with a surgical clip. Hemostasis not having been ensured the irrigating fluid was aspirated from the peritoneal cavity. The patient was returned to the neutral position on the OR table. The umbilical trocar site was now approximated using the Endo Close and an absorbable suture. The pneumoperitoneum was then collapsed, the trochars removed and the suture tied. Cadwell were applied to the skin. At the end of the procedure she was in a stable condition when sent to the recovery room. Needle sponge and instrument count were correct. No drains were placed. Complications: None Transferred to: Recovery Room Condition: Good
[2022-02-09] MEDS ORDERED: HYDROCODONE/APAP 7.5/325 MG TAB PO PRN (15:41)
[2022-02-09] MEDS ORDERED: MEPERIDINE HCL 25 MG/ML SYR ONE (15:49)
[2022-02-09] MEDS ORDERED: HYDROMORPHONE HCL 1 MG/ML INJ ONE (16:10)
[2022-02-09 16:32] VITALS: O2SAT 100
[2022-02-09] MEDS ORDERED: NA CHLORIDE 0.9% 50 ML ONE ×2 (19:05→23:20)
--- NOTE | 2022-02-09 20:20 | RAD REPORT ---
EXAM DESCRIPTION: RAD - Cholangiogram Oper-Xray Or - 02/09/2022 8:06 pm CLINICAL HISTORY: IOC WITH DOCTOR PORSHA COMPARISON: Abdomen Exam Limited dated 02/09/2022 FINDINGS/IMPRESSION: Six intraoperative fluoroscopic images were submitted showing an intraoperative cholangiogram. No common bowel duct stones identified. Cumulative dose: 9.24 mGy Fluoro time: 0.5 minutes
[2022-02-10] MEDS ORDERED: NA CHLORIDE 0.9% 50 ML ONE ×2 (03:40→11:10)
[2022-02-10] MEDS: D5 0.45 NS 1,000 ML IV SCH ×2 (04:16→07:11)
[2022-02-10] MEDS ORDERED: CEFOXITIN SODIUM 1 GM/VIAL ONE ×2 (04:49→11:09)
[2022-02-10] MEDS: CEFOXITIN 1 GM in NA CHLORIDE 0.9% 50 ML IVPB SCH ×2 (05:43→11:39)
--- NOTE | 2022-02-10 11:35 | RAD REPORT ---
EXAM DESCRIPTION: CT - Abdomen Pelvis W Contrast - 02/09/2022 6:55 am CLINICAL HISTORY: The patient is 41 years old and is Female; upper abd pain TECHNIQUE: Axial computed tomography images of the abdomen and pelvis with intravenous contrast. S agittal and coronal reformatted images were created and reviewed. This CT exam was performed using one or more of the following dose reduction techniques: automated exposure control, adjustment of t he mA and/or kV according to patient size, and/or use of iterative reconstruction technique. COMPARISON: 08/17/2013 CT abdomen pelvis without contrast FINDINGS: LUNG BASES: Unremarkable. No mass. No consolidation. ABDOMEN: LIVER: Unremarkable. No mass. GALLBLADDER AND BILE DUCTS: Lacelike hyperattenuation demonstrated within the gallbladder neck, pos sibly reflecting thinly calcified gallstones. Minimal prominence of the central intrahepatic bile rupesh ts, with no appreciated source of obstruction. PANCREAS: Unremarkable. No mass. No ductal dilation. SPLEEN: Unremarkable. No splenomegaly. ADRENALS: Unremarkable. No mass. KIDNEYS AND URETERS: Unremarkable. No solid mass. No hydronephrosis. STOMACH AND BOWEL: Unremarkable. No obstruction. No mucosal thickening. PELVIS: APPENDIX: No findings to suggest acute appendicitis. BLADDER: Unremarkable. No mass. REPRODUCTIVE: Involuting 2 cm left ovarian cyst incidentally noted. No dedicated imaging follow-up recommended for this particular finding. ABDOMEN and PELVIS: INTRAPERITONEAL SPACE: Unremarkable. No free air. No significant fluid collection. BONES/JOINTS: See above. SOFT TISSUES: Unremarkable. VASCULATURE: Unremarkable. No abdominal aortic aneurysm. LYMPH NODES: Unremarkable. No enlarged lymph nodes. IMPRESSION: 1. Lacelike hyperattenuation demonstrated within the gallbladder neck, possibly reflec ting thinly calcified gallstones. Minimal prominence of the central intrahepatic bile ducts, with no appreciated source of obstruction. If there is clinical suspicion for acute cholecystitis, consider f urther characterization by gallbladder ultrasound or HIDA scan to evaluate for cystic duct obstructio n. 2. Otherwise, no acute abnormality identified to explain reported upper abdominal pain. Electronically signed by: Abelardo Redd MD 02/09/2022 5:30 AM COAL BAGGER Due to temporary technical issues with the PACS/Fluency reporting system, reports are being signed by the in house radiologists without review as a courtesy to insure prompt reporting. The interpreting radiologist is fully responsible for the content of the report.
[2022-02-10 12:23] VITALS: BP 109/60; TEMP 97
== END 2022-02-10 01:17 | disposition home or self-care (01) ==
LOC: ER 01:44 → ERHOLD 06:16 → 2ND 14:07
PROVIDERS: ADMIT Surgery; ATTEND Surgery
PROC: 0FT44ZZ Resection of Gallbladder, Percutaneous Endoscopic Approach (ICD-10-PCS; principal; 2022-02-09 14:00)
DX: K80.12 Calculus of gallbladder with acute and chronic cholecystitis without obstruction (principal); Z20.822 Contact with and (suspected) exposure to COVID-19
CPT/HCPCS: 96365; 96361; 96368; 85025; 36415; 88304; 81003; 83690; 80053; 74177; 74300; 76705; 94010; 96375; 99285; 96366; 87811; 47562; Q9967; J2704; J0330; J2250; J3010 ×2; J1100; J2175; J1170; J2710; G0378 ×4; J7799 ×2; J7120 ×2; J7030; J0694 ×5; J2405 ×4